=== PATIENT | male | born 1955 | race Caucasian/White ===

== ENCOUNTER 2017-11-29 10:15 | Day surgery (SDC) | payer MEDICARE, MEDICAID ==
[~2017-11-29] VITALS: Ht 170.2 cm; Wt 72.2 kg
[2017-11-29] VITALS (11 sets, daily range): BP systolic 102–117; BP diastolic 54–75
[2017-11-29] MEDS ORDERED: diphenhydrAMINE 25mg capsule PO PRN (10:40)
[2017-11-29] MEDS ORDERED: normal saline 1000ml 1,000 ML IV SCH (10:40)
[2017-11-29] MEDS ORDERED: nitroGLYCERIN 0.4mg SUBLingual tab SL PRN (10:40)
[2017-11-29] MEDS ORDERED: LORazepam 0.5 MG tablet PO PRN (10:40)
[2017-11-29] MEDS ORDERED: OMEP40CA37 PO (11:03)
[2017-11-29] MEDS ORDERED: BUSP5TAB3 PO (11:03)
[2017-11-29] MEDS ORDERED: ASPI-1265 PO (11:03)
[2017-11-29] MEDS ORDERED: LIDOcaine 1% w/EPI 1:100,000 30ml vial (MDV) ONE (12:13)
[2017-11-29] MEDS ORDERED: iohexol 350MG/ML 100ml bottle IV ONE (12:13)
[2017-11-29] MEDS ORDERED: iohexol 350 MG/ML 50ML vial IV ONE ×2 (12:13→12:45)
[2017-11-29] MEDS ORDERED: midazolam 2 mg/2 ml injection ONE (12:36)
[2017-11-29] MEDS ORDERED: fentaNYL/PF 50MCG/1 ML 2ML syringe ONE (12:36)
== END 2017-11-29 19:00 | disposition home or self-care (01) ==
LOC: SSTAY O 10:15
PROVIDERS: ATTEND Internal Medicine Cardiovascular Disease
DX: I25.10 Atherosclerotic heart disease of native coronary artery without angina pectoris (principal); I70.291 Other atherosclerosis of native arteries of extremities, right leg; F20.9 Schizophrenia, unspecified; N40.0 Benign prostatic hyperplasia without lower urinary tract symptoms; F17.210 Nicotine dependence, cigarettes, uncomplicated; Z79.82 Long term (current) use of aspirin; Z99.81 Dependence on supplemental oxygen; Z79.899 Other long term (current) drug therapy
CPT/HCPCS: 75630; 93458; 99152; 99153; A6257; C1760; C1769; J1644; J2250; J3010; J3490; J7030; Q0163; Q9967